=== PATIENT | male | born 2000 | race Caucasian/White ===

== ENCOUNTER 2021-10-08 20:34 | Emergency (ER) | payer OTHER ==
[2021-10-08] MEDS ORDERED: Ketorolac Tromethamine 30 MG/ML VIAL ONE (23:42)
== END 2021-10-09 00:06 | disposition home or self-care (01) ==
LOC: ERS 20:34
DX: M54.50 Low back pain, unspecified (principal); I10 Essential (primary) hypertension; F17.290 Nicotine dependence, other tobacco product, uncomplicated
CPT/HCPCS: 96372; 99283; J1885

== ENCOUNTER 2021-10-10 07:46 | Outpatient (CLI) | payer OTHER | END 2021-10-10 07:47 | disposition home or self-care (01) | LOC: TBSIIMAG 07:46 | PROVIDERS: ATTEND Surgery | DX: M43.16 Spondylolisthesis, lumbar region (principal); M54.2 Cervicalgia; M54.6 Pain in thoracic spine; M47.817 Spondylosis without myelopathy or radiculopathy, lumbosacral region; M47.816 Spondylosis without myelopathy or radiculopathy, lumbar region | CPT/HCPCS: 72050; 72072; 72141; 72146; 72148 ==